=== PATIENT | female | born 1930 | race Hispanic/Latino ===

== ENCOUNTER 2016-06-27 19:10 | Emergency (ER) | payer MEDICARE, MEDICAID ==
[2016-06-27] MEDS ORDERED: Ketorolac Tromethamine 60 MG/2 ML VIAL ONE (19:42)
--- NOTE | 2016-06-27 20:11 | PICIS ---
[facility] EMERGENCY RECORD TRIAGE (TueJun 27, 2016 19:20 [facility]) TRIAGE NOTES: shooting pain in R hip down to toes. started this am when she got out of bed. (TueJun 27, 2016 19:20 [facility]) PATIENT: NAME: Jane Duffy, AGE: 85, GENDER: female, : [id number], TIME OF GREET: TueJun 27, 2016 19:11, PREFERRED LANGUAGE: French, ETHNICITY: or , ECODE BILLING MAP: [facility], SSN: [id number], Zip Code: [address], KG WEIGHT: 78.02 (est.), PHONE: , , , PERSON ID: [id number], PAYMENT: [employer], PCP: DO KRAUS KRISTEL. (TueJun 27, 2016 19:20 [facility]) COMPLAINT: pain in R Hip. (TueJun 27, 2016 19:20 [facility]) ADMISSION: URGENCY: 4 Non Urgent, ADMISSION SOURCE: Home, TRANSPORT: CAR, BED: TRIAGE. (TueJun 27, 2016 19:20 [facility]) SIRS SCORING: Heart Rate 55-109 (0), Temp range 96.8-101.1 (0), respiratory rate 12-24 (0), Mental Status altered: no (0). (19:23 [facility]) TRIAGE SCREENING: Patient denies suicidal ideation, Patient denies presence of domestic violence. (19:23 [facility]) TREATMENTS IN PROGRESS: Treatments given Prehospital: tylenol approx 1500. (19:23 [facility]) PROVIDERS: TRIAGE NURSE: Mariah Hanson RN. (TueJun 27, 2016 19:20 [facility]) VITAL SIGNS: BP 157/68, Pulse 74, Resp 18, (Non-Labored), Temp 98.6, (Oral), Pain 8, O2 Sat 96, on Room Air, Time 06/27/2016 19:16. (19:16 [facility]) PREVIOUS VISIT ALLERGIES: aspirin (bulk). (TueJun 27, 2016 19:20 [facility]) aspirin (bulk). (19:23 [facility]) KNOWN ALLERGIES aspirin (bulk) CURRENT MEDICATIONS dicyclomine: TABLET : Strength - 20 mg : ORAL Patient Dose: 20 mg Oral 4 times a day. (19:32 [facility]) Dexilant: CAPSULE, DELAYED RELEASE, BIPHASIC : Strength - 30 mg : ORAL Patient Dose: 1 tab(s) Oral once a day. (19:32 [facility]) amLODIPine: TABLET : Strength - 10 mg : ORAL Patient Dose: 1 tab(s) Oral once a day. (19:32 [facility]) traMADol: TABLET : Strength - 50 mg : ORAL Patient Dose: 50 mg Oral 2 times a day.as needed for pain. (19:33 [facility]) baclofen: TABLET : Strength - 10 mg : ORAL Patient Dose: 1 tab(s) Oral 3 times a day. (19:34 [facility]) &a-1R&a+25V*p+0X*m8447L*c202B*c15G*c2P*p-0X&a-25V&a+1R Name: Jane Duffy : 1930 F85 MedRec: [id number] AcctNum: [id number] Prepared: Eunice Jun 27, 2016 20:15 by Interface Page 1 of 6 pMD [facility] EMERGENCY RECORD VITAL SIGNS VITAL SIGNS: BP: 157/68, Pulse: 74, Resp: 18 (Non-Labored), Temp: 98.6 (Oral), Pain: 8, O2 sat: 96 on Room Air, Time: 06/27/2016 19:16. (19:16 [facility]) BP: 151/77, Pulse: 71, Resp: 16 (Non-Labored), Temp: 98.1 (Oral), Pain: 7, O2 sat: 100 on Room Air, Time: 06/27/2016 19:52. (19:52 [facility]) NURSING ASSESSMENT: EXTREMITY LOWER (19:23 [facility]) CONSTITUTIONAL: Complex assessment performed, Patient arrives ambulatory, Gait steady, History obtained from patient, Patient appears comfortable, Patient cooperative, Patient alert, Oriented to person, place and time, Skin warm, Skin dry, Skin normal in color, Mucous membranes pink, Mucous membranes moist, Patient is well-groomed, Patient complains of R hip pain, pt uses cane. PAIN: sharp pain, shooting pain, to the right hip, Pain radiates, radiated from hip to foot and toes, Onset of pain 06/27/2016 am, on a scale 0-10 patient rates pain as 8. RIGHT LOWER EXTREMITY: Right lower extremity assessment findings include capillary refill less than 2 seconds, Skin color normal, Skin temperature warm, Distal sensation intact, Muscle tone normal, muscle strength 5, non-pitting edema present, dorsalis pedis pulse is +3, Inspection findings include no pressure ulcers to the hip, Inspection findings include no pressure ulcer to the sacrum, Inspection findings include no pressure ulcer to the heel, Inspection findings include no pressure ulcer. SAFETY: Side rails up, Cart/Stretcher in lowest position, Family at bedside, Call light within reach, Hospital ID band on, Patient in view of the nursing station. NURSING PROCEDURE: DISCHARGE NOTE (19:58 [facility]) DISCHARGE: Patient discharged to home, ambulating with assistance, family driving, accompanied by other family member, Summary of Care printed/ provided, Patient requested and was provided an electronic copy of Discharge Instructions, Transition record given to patient, Discharge instructions given to patient, Discharge instructions given to daughter in law, Simple or moderate discharge teaching performed, by Mariah DOYLE, ibuprofen for pain, follow up with pcp if pain continues., Medication reconciliation form given, Above person(s) verbalized understanding of discharge instructions and follow-up care, Supervisor Core Drilling used, Patient treated and evaluated by physician. BELONGINGS: Belongings and valuables with patient at time of discharge include:, Belongings remain with patient, Valuables remain with patient. SAFETY: Side rails up, Cart/Stretcher in lowest position, Family at bedside, Call light within reach, Hospital ID band on, Patient in view of the nursing station. &a-1R&a+25V*p+0X*l0394F*c202B*c15G*c2P*p-0X&a-25V&a+1R Name: CliveJane Jose Armando : 1930 F85 MedRec: [id number] AcctNum: [id number] Prepared: Eunice Jun 27, 2016 20:15 by Interface Page 2 of 6 pMD [facility] EMERGENCY RECORD NURSING PROCEDURE: NURSE NOTES (19:35 [facility]) NURSES NOTES: Notes: ERMD at bedside. MEDICATION ADMINISTRATION SUMMARY Drug Name: Toradol intramuscular, Dose Ordered: 60 mg, Route: Intramuscular, Status: Given, Time: 19:48 06/27/2016, Detailed record available in Medication Service section. MEDICATION SERVICE (19:48 [facility]) Toradol intramuscular: Order: Toradol intramuscular (ketorolac tromethamine) - Dose: 60 mg : Intramuscular POTENTIAL ALLERGY REACTION: 'aspirin (bulk) [aspirin]' - Benefits outweigh risks, Reviewed with patient Ordered by: Dieudonne Jade MD Entered by: Dieudonne Jade MD [place] Jun 27, 2016 19:41 , Acknowledged by: Mariah Hanson RN [place] Jun 27, 2016 19:42 Documented as given by: Mariah Hanson RN [place] Jun 27, 2016 19:48 Patient, Medication, Dose, Route and Time verified prior to administration. IM medication, Amount given: 60 mg, Medication administered to right hip, Patient appears Awake and alert- acceptable, Correct patient, time, route, dose and medication confirmed prior to administration, Patient advised of actions and side-effects prior to administration, Allergies confirmed and medications reviewed prior to administration, Patient in position of comfort, Side rails up, Cart in lowest position, Family at bedside, Call light in reach. HPI BACK (20:06 [facility]) CHIEF COMPLAINT: Patient presents for evaluation of pain, to the right lower back. HISTORIAN: History provided by patient, 85F presents to the ED reporting that when she woke up this morning she had right low back pain radiating down her right leg. States it was present last night but less severe. Had similar problems on the left in the past. Denies trauma, denies abdominal pain. MECHANISM OF INJURY: No apparent mechanism of injury. LOCATION: Symptoms are localized to the back, right lumbar region. QUALITY: Pain is dull in nature, described as aching, described as throbbing. TIME COURSE: Gradual onset of symptoms, Symptoms are worsening. ASSOCIATED WITH: Associated with radiation of pain, to the right leg, Associated with sciatica, on the right. EXACERBATED BY: Patient's condition exacerbated by movement. RELIEVED BY: Patient's condition relieved by nothing because patient has not tried anything for relief. ROS (20:08 [facility]) &a-1R&a+25V*p+0X*q7863F*c202B*c15G*c2P*p-0X&a-25V&a+1R Name: Jane Duffy : 1930 F85 MedRec: [id number] AcctNum: [id number] Prepared: Eunice Jun 27, 2016 20:15 by Interface Page 3 of 6 pMD [facility] EMERGENCY RECORD CONSTITUTIONAL: Negative constitutional review of systems, Historian denies chills, denies fever. EYES: Negative eye review of systems, Historian denies eye pain, denies vision changes. ENT: Negative ears, nose, throat review of systems, Historian denies rhinorrhea, denies sore throat, denies voice changes. CARDIOVASCULAR: Negative cardiovascular review of systems, Historian denies chest pain, denies palpitations. RESPIRATORY: Negative respiratory review of systems, Historian denies cough, denies shortness of breath. GI: Negative gastrointestinal review of systems, Historian denies abdominal pain, denies constipation, denies diarrhea, denies nausea, denies vomiting. GENITOURINARY FEMALE: Negative genitourinary review of systems, Historian denies dysuria, denies frequency. MUSCULOSKELETAL: Historian reports back pain, right low back pain with radiation down right leg. SKIN: Negative skin review of systems, Historian denies rash, denies skin changes. NEUROLOGIC: Negative neurologic review of systems, Historian denies headache, denies mental status changes, denies paralysis, denies paresthesias, denies sensory changes. HEMO/LYMPHATIC: Normal hematologic/lymphatic system review, Historian denies abnormal blood clotting. ALLERGIC/IMMUNOLOGIC: Normal allergy/immunologic system review, Historian denies frequent infections. PAST MEDICAL HISTORY (19:23 [facility]) MEDICAL HISTORY: Flu vaccine up to date, Flu vaccine up to date Notes: RA, osteoprosis, myelopathy, insomnia,, Past medical history includes history of hypertension, Past medical history includes pulmonary disease, emphysema. asthma. FEMALE SURGICAL HISTORY: right ankle, bilat knee, bilat cataracts,, Surgical history of cholecystectomy, Surgical history of hysterectomy. BILATERAL MASTECTOMY. REVIEWED 02/25/15. PSYCHIATRIC HISTORY: Psychiatric history includes, depression. SOCIAL HISTORY: Patient denies alcohol use, Patient denies drug use, Patient has no smoking history. PHYSICAL EXAM (20:08 [facility]) CONSTITUTIONAL: Vital signs reviewed, Patient afebrile, Pulse normal, Blood pressure normal, Respiratory rate normal, Patient appears non toxic, Patient appears pain free, Patient alert and oriented to person, place and time. HEAD: Head exam normal, Head exam included findings of head atraumatic, normocephalic. EYES: Eye exam normal, Eye exam included findings of eyelids normal to inspection, Pupils equally round and reactive to light, Extraocular muscles intact, no nystagmus. &a-1R&a+25V*p+0X*d7754K*c202B*c15G*c2P*p-0X&a-25V&a+1R Name: Jane Duffy : 1930 F85 MedRec: [id number] AcctNum: [id number] Prepared: Eunice Jun 27, 2016 20:15 by Interface Page 4 of 6 D [facility] EMERGENCY RECORD ENT: ENT exam normal, Ear exam normal, external ear normal, tympanic membranes normal, no bleeding, Pharynx exam normal, Uvula exam normal, Tonsil exam normal, Mouth exam normal, mucous membranes moist, teeth normal. NECK: Neck exam normal, Neck exam included findings of normal range of motion, Trachea midline, no meningeal signs, no cervical adenopathy, no tenderness. RESPIRATORY CHEST: Respiratory and chest exam normal, Respiratory exam included findings of no respiratory distress, Breath sounds clear. CARDIOVASCULAR: Cardiovascular assessment normal, Cardiovascular exam included findings of heart rate regular rate and rhythm, Heart sounds normal. ABDOMEN FEMALE: Abdominal exam included findings of abdomen nontender, Bowel sounds normal, no distension, no mass, no pulsatile masses, no peritoneal signs, no rigidity, no guarding, no rebound, Rovsing's sign absent. BACK: right lumbar paraspinal tenderness, no midline tenderness. UPPER EXTREMITY: Upper extremity exam normal, Upper extremity exam included findings of inspection normal, Range of motion normal, Motor strength normal, Sensation intact, Radial pulse normal. LOWER EXTREMITY: Lower extremity exam normal, Lower extremity exam included findings of inspection normal, Range of motion normal, Motor strength normal, Sensation intact, Posterior tibial pulse normal, Pedal pulse normal. NEURO: Neuro exam normal, Neuro exam findings include patient oriented to person, place and time, Speech normal, Gait normal, Cranial nerves intact, no focal motor deficits, no focal sensory deficits. SKIN: Skin exam normal, Skin exam included findings of skin warm, dry, and normal in color, no rash. PSYCHIATRIC: Psychiatric exam normal, Normal affect. EVENTS TRANSFER: Triage to Emergency Triage. (Eunice Jun 27, 2016 19:20 [facility]) Emergency Triage to Emergency Room -01. (19:20 [facility]) Emergency Emergency Room -01 to -02. (19:20 [facility]) Removed from Emergency Emergency Room -02. (20:05 [facility]) DOCTOR NOTES (20:09 [facility]) TEXT: Patient presented to the ED with complaints suggestive of muscular back pain. I considered more concerning injuries such as epidural hematoma, caudal equina syndrome, fracture, or abscess, but felt that they were less likely based on the patient's history and physical exam findings. I believe that the patient is suitable for outpatient management and follow up with the primary doctor, and that the patient should return to the ED if symptoms worsen or change. &a-1R&a+25V*p+0X*v9719X*c202B*c15G*c2P*p-0X&a-25V&a+1R Name: Jane Duffy : 1930 F85 MedRec: [id number] AcctNum: [id number] Prepared: Eunice Jun 27, 2016 20:15 by Interface Page 5 of 6 pMD [facility] EMERGENCY RECORD PATIENT STATUS: Patient has improved since arrival to emergency department. PATIENT PLAN: The patient will be discharged, The patient will follow up with primary care physician. PROBLEM LIST No recorded problems [facility]IS (19:45 [facility] FINAL: PRIMARY: Sciatica - RIGHT. DISPOSITION PATIENT: Disposition Type: Discharge, Disposition: *Discharge Home. (19:45 [facility]) Patient left the department. (20:05 [facility]) IN[facility]CTION (19:46 [facility] DISCHARGE: BACK PAIN W/ SCIATICA. FOLLOWUP: DO KRAUS KRISTEL, Family Practice, [facility] [id number], [id number]. SPECIAL: Stretch, ibuprofen or naproxen for pain. Hot packs, and follow up with your primary doctor. PRESCRIPTION No recorded prescriptions IMAGING (20:00 [facility]) *SUPPLY CHARGE SHEET: Image captured from scanner. *DISCHARGE INSTRUCTIONS RECEIPT: Image captured from scanner. ADMIN (20:09 [facility]) DIGITAL SIGNATURE: MD Jade Jason. [place]: MATILDA=MD Jade Jason [facility]=YANIRA Hanson, Mariah &a-1R&a+25V*p+0X*b6736K*c202B*c15G*c2P*p-0X&a-25V&a+1R Name: Jane Duffy : 1930 F85 MedRec: [id number] AcctNum: [id number] Prepared: Eunice Jun 27, 2016 20:15 by Interface Page 6 of 6 pMD MTDD
--- NOTE | 2016-06-27 20:11 | ERRECORD ---
[facility] EMERGENCY RECORD HPI BACK (20:06 [facility]) CHIEF COMPLAINT: Patient presents for evaluation of pain, to the right lower back. HISTORIAN: History provided by patient, 85F presents to the ED reporting that when she woke up this morning she had right low back pain radiating down her right leg. States it was present last night but less severe. Had similar problems on the left in the past. Denies trauma, denies abdominal pain. MECHANISM OF INJURY: No apparent mechanism of injury. LOCATION: Symptoms are localized to the back, right lumbar region. QUALITY: Pain is dull in nature, described as aching, described as throbbing. TIME COURSE: Gradual onset of symptoms, Symptoms are worsening. ASSOCIATED WITH: Associated with radiation of pain, to the right leg, Associated with sciatica, on the right. EXACERBATED BY: Patient's condition exacerbated by movement. RELIEVED BY: Patient's condition relieved by nothing because patient has not tried anything for relief. ROS (20:08 [facility]) CONSTITUTIONAL: Negative constitutional review of systems, Historian denies chills, denies fever. EYES: Negative eye review of systems, Historian denies eye pain, denies vision changes. ENT: Negative ears, nose, throat review of systems, Historian denies rhinorrhea, denies sore throat, denies voice changes. CARDIOVASCULAR: Negative cardiovascular review of systems, Historian denies chest pain, denies palpitations. RESPIRATORY: Negative respiratory review of systems, Historian denies cough, denies shortness of breath. GI: Negative gastrointestinal review of systems, Historian denies abdominal pain, denies constipation, denies diarrhea, denies nausea, denies vomiting. GENITOURINARY FEMALE: Negative genitourinary review of systems, Historian denies dysuria, denies frequency. MUSCULOSKELETAL: Historian reports back pain, right low back pain with radiation down right leg. SKIN: Negative skin review of systems, Historian denies rash, denies skin changes. NEUROLOGIC: Negative neurologic review of systems, Historian denies headache, denies mental status changes, denies paralysis, denies paresthesias, denies sensory changes. HEMO/LYMPHATIC: Normal hematologic/lymphatic system review, Historian denies abnormal blood clotting. ALLERGIC/IMMUNOLOGIC: Normal allergy/immunologic system review, Historian denies frequent infections. PAST MEDICAL HISTORY (19:23 [facility]) &a-1R&a+25V*p+0X*w9797T*c202B*c15G*c2P*p-0X&a-25V&a+1R Name: Jane Duffy : 1930 F85 MedRec: [id number] AcctNum: [id number] Prepared: Eunice Jun 27, 2016 20:15 by Interface Page 1 of 4 pMD [facility] EMERGENCY RECORD MEDICAL HISTORY: Flu vaccine up to date, Flu vaccine up to date Notes: RA, osteoprosis, myelopathy, insomnia,, Past medical history includes history of hypertension, Past medical history includes pulmonary disease, emphysema. asthma. FEMALE SURGICAL HISTORY: right ankle, bilat knee, bilat cataracts,, Surgical history of cholecystectomy, Surgical history of hysterectomy. BILATERAL MASTECTOMY. REVIEWED 02/25/15. PSYCHIATRIC HISTORY: Psychiatric history includes, depression. SOCIAL HISTORY: Patient denies alcohol use, Patient denies drug use, Patient has no smoking history. KNOWN ALLERGIES aspirin (bulk) CURRENT MEDICATIONS dicyclomine: TABLET : Strength - 20 mg : ORAL Patient Dose: 20 mg Oral 4 times a day. (19:32 [facility]) Dexilant: CAPSULE, DELAYED RELEASE, BIPHASIC : Strength - 30 mg : ORAL Patient Dose: 1 tab(s) Oral once a day. (19:32 [facility]) amLODIPine: TABLET : Strength - 10 mg : ORAL Patient Dose: 1 tab(s) Oral once a day. (19:32 [facility]) traMADol: TABLET : Strength - 50 mg : ORAL Patient Dose: 50 mg Oral 2 times a day.as needed for pain. (19:33 [facility]) baclofen: TABLET : Strength - 10 mg : ORAL Patient Dose: 1 tab(s) Oral 3 times a day. (19:34 [facility]) VITAL SIGNS VITAL SIGNS: BP: 157/68, Pulse: 74, Resp: 18 (Non-Labored), Temp: 98.6 (Oral), Pain: 8, O2 sat: 96 on Room Air, Time: 06/27/2016 19:16. (19:16 [facility]) BP: 151/77, Pulse: 71, Resp: 16 (Non-Labored), Temp: 98.1 (Oral), Pain: 7, O2 sat: 100 on Room Air, Time: 06/27/2016 19:52. (19:52 [facility]) PHYSICAL EXAM (20:08 [facility]) CONSTITUTIONAL: Vital signs reviewed, Patient afebrile, Pulse normal, Blood pressure normal, Respiratory rate normal, Patient appears non toxic, Patient appears pain free, Patient alert and oriented to person, place and time. HEAD: Head exam normal, Head exam included findings of head atraumatic, normocephalic. EYES: Eye exam normal, Eye exam included findings of eyelids normal to inspection, Pupils equally round and reactive to light, Extraocular muscles intact, no nystagmus. &a-1R&a+25V*p+0X*b8686O*c202B*c15G*c2P*p-0X&a-25V&a+1R Name: Jane Duffy : 1930 F85 MedRec: [id number] AcctNum: [id number] Prepared: Eunice Jun 27, 2016 20:15 by Interface Page 2 of 4 D [facility] EMERGENCY RECORD ENT: ENT exam normal, Ear exam normal, external ear normal, tympanic membranes normal, no bleeding, Pharynx exam normal, Uvula exam normal, Tonsil exam normal, Mouth exam normal, mucous membranes moist, teeth normal. NECK: Neck exam normal, Neck exam included findings of normal range of motion, Trachea midline, no meningeal signs, no cervical adenopathy, no tenderness. RESPIRATORY CHEST: Respiratory and chest exam normal, Respiratory exam included findings of no respiratory distress, Breath sounds clear. CARDIOVASCULAR: Cardiovascular assessment normal, Cardiovascular exam included findings of heart rate regular rate and rhythm, Heart sounds normal. ABDOMEN FEMALE: Abdominal exam included findings of abdomen nontender, Bowel sounds normal, no distension, no mass, no pulsatile masses, no peritoneal signs, no rigidity, no guarding, no rebound, Rovsing's sign absent. BACK: right lumbar paraspinal tenderness, no midline tenderness. UPPER EXTREMITY: Upper extremity exam normal, Upper extremity exam included findings of inspection normal, Range of motion normal, Motor strength normal, Sensation intact, Radial pulse normal. LOWER EXTREMITY: Lower extremity exam normal, Lower extremity exam included findings of inspection normal, Range of motion normal, Motor strength normal, Sensation intact, Posterior tibial pulse normal, Pedal pulse normal. NEURO: Neuro exam normal, Neuro exam findings include patient oriented to person, place and time, Speech normal, Gait normal, Cranial nerves intact, no focal motor deficits, no focal sensory deficits. SKIN: Skin exam normal, Skin exam included findings of skin warm, dry, and normal in color, no rash. PSYCHIATRIC: Psychiatric exam normal, Normal affect. MEDICATION ADMINISTRATION SUMMARY Drug Name: Toradol intramuscular, Dose Ordered: 60 mg, Route: Intramuscular, Status: Given, Time: 19:48 06/27/2016, Detailed record available in Medication Service section. DOCTOR NOTES (20:09 [facility]) TEXT: Patient presented to the ED with complaints suggestive of muscular back pain. I considered more concerning injuries such as epidural hematoma, caudal equina syndrome, fracture, or abscess, but felt that they were less likely based on the patient's history and physical exam findings. I believe that the patient is suitable for outpatient management and follow up with the primary doctor, and that the patient should return to the ED if symptoms worsen or change. PATIENT STATUS: Patient has improved since arrival to emergency &a-1R&a+25V*p+0X*a9895B*c202B*c15G*c2P*p-0X&a-25V&a+1R Name: Jane Duffy Jose Armando : 1930 F85 MedRec: [id number] AcctNum: [id number] Prepared: Eunice Jun 27, 2016 20:15 by Interface Page 3 of 4 pMD [facility] EMERGENCY RECORD department. PATIENT PLAN: The patient will be discharged, The patient will follow up with primary care physician. PROBLEM LIST No recorded problems DIAGNOSIS (19:45 [facility]) FINAL: PRIMARY: Sciatica - RIGHT. PRESCRIPTION No recorded prescriptions DISPOSITION PATIENT: Disposition Type: Discharge, Disposition: *Discharge Home. (19:45 [facility]) Patient left the department. (20:05 [facility]) [place]: SOCO=MD Kalie, Dieudonne [place]=YANIRA Hanson, Mariah &a-1R&a+25V*p+0X*u3727R*c202B*c15G*c2P*p-0X&a-25V&a+1R Name: Jane Duffy DOB: 1930 F85 MedRec: [id number] AcctNum: [id number] Prepared: Eunice Jun 27, 2016 20:15 by Interface Page 4 of 4 pMD MTDD
== END 2016-06-27 19:57 | disposition home or self-care (01) ==
LOC: BURERS 19:10
DX: M54.41 Lumbago with sciatica, right side (principal); I10 Essential (primary) hypertension; J45.909 Unspecified asthma, uncomplicated; F32.9 Major depressive disorder, single episode, unspecified; Z79.899 Other long term (current) drug therapy
CPT/HCPCS: 96372; J1885

== ENCOUNTER 2016-06-29 08:45 | Emergency (ER) | payer MEDICARE, MEDICAID ==
[2016-06-29] MEDS ORDERED: Ketorolac Tromethamine 30 MG/ML VIAL ONE (09:18)
[2016-06-29 09:22] LABS: #Basophils 0.1 thou/uL (0.0-0.2); #Eosinphils 0.2 thou/uL (0.0-0.7); #Lymphocytes 0.9 thou/uL (1.20-3.40); #Monocytes 0.4 thou/uL (0.11-0.59); #Neutrophils 5.2 thou/uL (1.40-6.50); %Basophils 0.9 % (0.0-1.0); %Eosinophils 2.7 % (0.0-10.0); %Monocytes 5.4 % (0.0-10.0); Hematocrit 42.6 % (36.0-47.0); Mean Platelet Volume 5.6 fL (7.4-10.4); Red Blood Cell (RBC) Count 5.12 mill/uL (4.20-5.40); White Blood Cell (WBC) Count 6.6 thou/uL (4.8-10.8)
[2016-06-29] MEDS ORDERED: Fentanyl 100 MCG/2 ML VIAL ONE (09:39)
[2016-06-29 09:43] LABS: ALT (SGPT) 16 U/L (0-55); AST (SGOT) 19 U/L (5-34); Alkaline Phosphatase 135 U/L (40-150); Anion Gap 14 mmol/L (10-20); BUN (Urea Nitrogen) 18 mg/dL (9.8-20.1); Bilirubin, Total 0.8 mg/dL (0.2-1.2); Calc. Creatinine Clearance 0 mL/min (70-130); Calcium 9.2 mg/dL (7.8-10.44); Carbon Dioxide 25 mmol/L (23-31); Chloride 105 mmol/L (98-107); Estimated GFR-MDRD 50; Globulin 3.3 g/dL (2.4-3.5); Protein, Total 7.5 g/dL (5.8-8.1)
[2016-06-29] MEDS ORDERED: methylPREDNISolone Sod Succ/PF 125 MG/2 ML VIAL ONE (09:56)
[2016-06-29 11:05] LABS: Bilirubin Negative (Negative); Blood, Urine Trace (Negative); Glucose, Urine (Dipstick) Negative (Negative); Ketone, Urine Negative (Negative); Nitrite Negative (Negative); Protein, Urine (Dipstick) Negative (Neg-Trace); Urobilinogen 0.2 mg/dL (0.2-1.0)
[2016-06-29 11:09] LABS: Bacteria/HPF Rare-Few HPF (None Seen); RBC/HPF 0-3 HPF (0-3); Squamous Epithelial 0-3 HPF (0-3); WBC/HPF 0-3 HPF (0-3)
--- NOTE | 2016-06-29 12:21 | PICIS ---
[facility] EMERGENCY RECORD TRIAGE (08:50 KMOR) TRIAGE NOTES: Right leg pain dx with right sciatic nerve pain on Tuesday. (08:50 KMOR) PATIENT: NAME: Jane Duffy, AGE: 85, GENDER: female, : [id number], TIME OF GREET: TueJun 29, 2016 08:47, PREFERRED LANGUAGE: Maltese, ETHNICITY: or , ECODE BILLING MAP: [facility], SSN: [id number], Zip Code: [address], KG WEIGHT: 77.11, PHONE: , , , PERSON ID: [id number], PAYMENT: [employer], PCP: DO KRAUS KRISTEL. (08:50 KMOR) COMPLAINT: Right Leg Pain. (08:50 KMOR) ADMISSION: URGENCY: 4 Non Urgent, ADMISSION SOURCE: Home, AMBULANCE: [facility], TRANSPORT: AMBULANCE - [facility], BED: ER -04. (08:50 KMOR) ASSESSMENT: Assessment: A&XO4. RR AND UNLABORED., Symptoms began 2 days ago. (08:53 KMOR) PAIN: Patient complains of pain described as, aching, burning, on a scale 0-10 patient rates pain as 8, Location RIGHT LEG. (08:53 KMOR) SIRS SCORING: Heart Rate 55-109 (0), Temp range 96.8-101.1 (0), respiratory rate 12-24 (0), Mental Status altered: no (0), Infection or Suspected Infection: No. (08:53 KMOR) TRIAGE SCREENING: Patient denies suicidal ideation, Patient denies presence of domestic violence. (08:53 KMOR) LMP: LMP: Hysterectomy. (08:53 KMOR) PROVIDERS: TRIAGE NURSE: Ary Li RN. (08:50 KMOR) VITAL SIGNS: BP 133/65, Pulse 65, Resp 18, Temp 98.0, (Oral), Pain 8, O2 Sat 98, on Room Air, Time 06/29/2016 08:51. (08:51 KMOR) PREVIOUS VISIT ALLERGIES: aspirin (bulk). (08:50 KMOR) aspirin (bulk). (08:53 KMOR) KNOWN ALLERGIES aspirin (bulk) CURRENT MEDICATIONS (08:51 KMOR) dicyclomine: TABLET : Strength - 20 mg : ORAL Patient Dose: 20 mg Oral 4 times a day. Dexilant: CAPSULE, DELAYED RELEASE, BIPHASIC : Strength - 30 mg : ORAL Patient Dose: 1 tab(s) Oral once a day. amLODIPine: TABLET : Strength - 10 mg : ORAL Patient Dose: 1 tab(s) Oral once a day. traMADol: TABLET : Strength - 50 mg : ORAL Patient Dose: 50 mg Oral 2 times a day.as needed for pain. baclofen: TABLET : Strength - 10 mg : ORAL Patient Dose: 1 tab(s) Oral 3 times a day. &a-1R&a+25V*p+0X*t8305N*c202B*c15G*c2P*p-0X&a-25V&a+1R Name: Jane Duffy : 1930 F85 MedRec: [id number] AcctNum: [id number] Prepared: Laurence Jun 29, 2016 12:19 by Interface Page [address] [facility] EMERGENCY RECORD VITAL SIGNS VITAL SIGNS: BP: 133/65, Pulse: 65, Resp: 18, Temp: 98.0 (Oral), Pain: 8, O2 sat: 98 on Room Air, Time: 06/29/2016 08:51. (08:51 KMOR) BP: 124/70, Pulse: 62, Resp: 18, O2 sat: 94 on Room Air, Time: 06/29/2016 09:35. (09:35 KMOR) BP: 142/77, Pulse: 66, Resp: 18, Pain: 1-2, O2 sat: 97 on Room Air, Time: 06/29/2016 10:35. (10:35 AHOO) NURSING ASSESSMENT: EXTREMITY LOWER (09:06 KMOR) CONSTITUTIONAL: Patient arrives, via stretcher, via [facility], Unsteady gait, Lift to cart, History obtained from patient, Patient appears comfortable, Patient cooperative, Patient alert, Oriented to person, place and time, Skin warm, Skin dry, Skin normal in color, Mucous membranes pink, Mucous membranes moist, Patient is well-groomed, Patient complains of Right leg pain, Patient report right leg pain, pain starts in right hip and radiates down leg. Dx with sciatic on Tuesday. PAIN: aching pain, burning pain, to the right hip, to the right upper leg, on a scale 0-10 patient rates pain as 8. LEFT LOWER EXTREMITY: Left lower extremity assessment findings include capillary refill less than 2 seconds, Skin color normal, Skin temperature warm, Distal sensation intact, Muscle tone normal, muscle strength 5, no edema present, dorsalis pedis pulse is +3. RIGHT LOWER EXTREMITY: Right lower extremity assessment findings include capillary refill less than 2 seconds, Skin color normal, Skin temperature warm, Distal sensation intact, Muscle tone normal, muscle strength 5, no edema present, dorsalis pedis pulse is +3. NOTES: Patient tolerated procedure well. NURSING PROCEDURE: DISCHARGE NOTE (12:12 KMOR) DISCHARGE: Patient discharged to home, in a wheelchair, family driving, accompanied by other family member, Summary of Care printed/ provided, Transition record given to patient, Discharge instructions given to patient, Simple or moderate discharge teaching performed, by YANIRA Mcallister, Discharge and follow up reviewed with patient, Patient taken to vehicle in wheelchair. Patient verbalized understanding of instructions, Prescriptions given and instructions on side effects given, Name of prescription(s) given: diclofenac, tylenol 3, prednisone, Above person(s) verbalized understanding of discharge instructions and follow-up care, Patient instructed not to drive home. BELONGINGS: Belongings remain with patient, Valuables remain with patient. NURSING PROCEDURE: IV (09:15 KMOR) PATIENT IDENITIFIER: Patient actively involved in identification process, Patient's identity verified by patient stating name, Patient's identity verified by patient stating date. &a-1R&a+25V*p+0X*m1013R*c202B*c15G*c2P*p-0X&a-25V&a+1R Name: Jane Duffy : 1930 F85 MedRec: [id number] AcctNum: [id number] Prepared: Laurence Jun 29, 2016 12:19 by Interface Page [address] [facility] EMERGENCY RECORD IV SITE 1: IV therapy indicated for hydration, IV therapy indicated for medication administration, IV established, to the right antecubital, using a 20 gauge catheter, in one attempt, Saline lock established, Flushed with normal saline (mls): 10cc, Labs drawn at time of placement, labeled in the presence of the patient and sent to lab. FOLLOW-UP SITE 1: After procedure, 2x3 ensure dressing applied, After procedure, no drainage at IV site, After procedure, no swelling at IV site, After procedure, no redness at IV site. NOTES: Patient tolerated procedure well. NURSING PROCEDURE: NURSE NOTES NURSES NOTES: Notes: requested urine from patient, patient stated she could not go right now. (09:24 KMOR) Notes: Patient talking on phone resting without distress. RR even and unlabored. (09:46 KMOR) Notes: Patient assisted up to bathroom with cane. Tolerated well. (10:04 KMOR) Notes: Urine straight cath was preformed after patient attempted to urinate but unable to go, while she was in the bathroom she saw bright red blood while whipping. During catheter patient was checked for any vaginal bleeding. No bleeding noted, small hemorrhoid noted during exam. No active bleeding during this time. (10:52 KMOR) NURSING PROCEDURE: TRANSPORT TO TESTS PATIENT IDENTIFIER: Patient actively involved in identification process, Patient's identity verified by patient stating name, Patient's identity verified by patient stating date. (09:22 KMOR) TRANSPORT TO TESTS: Transport indicated to facilitate diagnosis, Patient transported to CT scan, via cart, Accompanied by x-ray delivery technician. (09:22 KMOR) FOLLOW-UP: After procedure, patient returned to emergency department. (09:38 KMOR) NURSING PROCEDURE: URINE COLLECTION (10:54 KMOR) PATIENT IDENTIFIER: Patient actively involved in identification process, Patient's identity verified by patient stating name, Patient's identity verified by patient stating date. URINE COLLECTION FEMALE: Urine collected by straight cath, using an 8fr catheter kit, in one attempt, output amount (mL) 15ml, urine yellow in color, and clear, Specimen collected, labeled in the presence of the patient and sent to lab. NOTES: Patient tolerated procedure well. ORDER DETAILS Order Name: CATH STRAIGHT ED, Status: Done, Time: 10:52 06/29/2016, User: KMOR, - Ordered for: DO Wilson Joseph, &a-1R&a+25V*p+0X*x0411Q*c202B*c15G*c2P*p-0X&a-25V&a+1R Name: Jane Duffy : 1930 F85 MedRec: [id number] AcctNum: [id number] Prepared: TueJun 29, 2016 12:19 by Interface Page [address] [facility] EMERGENCY RECORD - Entered by: DO Wilson Joseph - TueJun 29, 2016 10:41, - Quantity: 1, Order Name: CBC with Differential, Status: Active, Time: 09:09 06/29/2016, User: KASHMIR, - Ordered for: DO Wilson Joseph, - Entered by: DO Wilson Joseph - TueJun 29, 2016 09:09, - Quantity: 1, Order Name: Comprehensive Metabolic Panel, Status: Active, Time: 09:09 06/29/2016, User: KASHMIR, - Ordered for: DO Wilson Joseph, - Entered by: DO Wilson Joseph - TueJun 29, 2016 09:09, - Quantity: 1, Order Name: CT Lumbar Spine WO Con, Status: Active, Time: 09:10 06/29/2016, User: KASHMIR, - Ordered for: DO Wilson Joseph, - Entered by: DO Wilson Joseph - TueJun 29, 2016 09:10, - Quantity: 1, Order Name: SALINE LOCK, Status: Done, Time: 09:24 06/29/2016, User: GERMÁN, - Ordered for: DO Wilson Joseph, - Entered by: DO Wilson Joseph - TueJun 29, 2016 09:09, - Quantity: 1, Order Name: Urinalysis w/ Rflx Microscopic, Status: Active, Time: 09:09 06/29/2016, User: KASHMIR, - Ordered for: DO Wilson Joseph, - Entered by: DO Wilson Joseph - TueJun 29, 2016 09:09, - Quantity: 1. MEDICATION ADMINISTRATION SUMMARY Drug Name: Normal Saline, Dose Ordered: 500 mL, Route: IV Fluid Infusion, Status: Given, Time: 10:51 06/29/2016, Drug Name: Solu-MEDROL injection, Dose Ordered: 125 mg, Route: IV Push, Status: Given, Time: 09:59 06/29/2016, Drug Name: fentaNYL (PF) injection, Dose Ordered: 100 mcg, Route: IV Push, Status: Given, Time: 09:45 06/29/2016, Drug Name: *Toradol injection, Dose Ordered: 30 mg, Route: IV Push, Status: Given, Time: 09:22 06/29/2016, *Additional information available in notes, Detailed record available in Medication Service section. MEDICATION SERVICE fentaNYL (PF) injection: Order: fentaNYL (PF) injection (fentanyl citrate/preservative free) - Dose: 100 mcg : IV Push Schedule: Now Ordered by: Andre Wilson DO Entered by: Andre Wilson DO TueJun 29, 2016 09:11 , Acknowledged by: Ary Li RN TueJun 29, 2016 09:22 Documented as given by: Ary Li RN TueJun 29, 2016 09:45 &a-1R&a+25V*p+0X*s5993H*c202B*c15G*c2P*p-0X&a-25V&a+1R Name: Jane Duffy : 1930 F85 MedRec: [id number] AcctNum: [id number] Prepared: TueJun 29, 2016 12:19 by Interface Page [address] [facility] EMERGENCY RECORD Patient, Medication, Dose, Route and Time verified prior to administration. Amount given: 100mcg, IV SITE #1 IVP, subsequent different medication, Slowly, Awake and alert- acceptable, Catheter placement confirmed via flush prior to administration, IV site without signs or symptoms of infiltration during medication administration, No swelling during administration, No drainage during administration, IV flushed after administration, Correct patient, time, route, dose and medication confirmed prior to administration, Patient advised of actions and side-effects prior to administration, Allergies confirmed and medications reviewed prior to administration, Patient in position of comfort, Side rails up, Cart in lowest position, Family at bedside. : Follow Up : Response assessment performed, No signs or symptoms of allergic reaction noted, Decreased pain, _IV SITE #1:_, PT VERBALIZED PAIN LEVEL DECREASED TO 1-2/10. (11:16 OO) Normal Saline: Order: Normal Saline (0.9 % sodium chloride) - Dose: 500 mL : IV Fluid Infusion Schedule: Bolus Ordered by: Andre Wilson DO Entered by: Andre Wilson DO TueJun 29, 2016 10:32 , Acknowledged by: Ary Li RN TueJun 29, 2016 10:33 Documented as given by: Ary Li RN TueJun 29, 2016 10:51 Patient, Medication, Dose, Route and Time verified prior to administration. Amount given: 500ml, IV SITE #1 IV fluids established for hydration, IV SITE #1 into right antecubital, IV SITE #1 1st bag hung, amount 1 Liter hung, IV SITE #1 bolus of 500 ml established, IV SITE #1 on IV pump, Connections checked prior to administration, Line traced prior to administration, Catheter placement confirmed via flush prior to administration, IV site without signs or symptoms of infiltration during medication administration, No swelling during administration, No drainage during administration, IV flushed after administration, Correct patient, time, route, dose and medication confirmed prior to administration, Patient advised of actions and side-effects prior to administration, Allergies confirmed and medications reviewed prior to administration, Patient in position of comfort, Side rails up, Cart in lowest position, Family at bedside. : Follow Up : Response assessment performed, No signs or symptoms of allergic reaction noted, _IV SITE #1:_, IV fluid infusion discontinued, on TueJun 29, 2016 11:15, 25 minutes, ., Total amount infused: 500 ML, IV Line flushed after administration. (11:16 OO) Solu-MEDROL injection: Order: Solu-MEDROL injection (methylprednisolone sod succ) - Dose: 125 mg : IV Push Ordered by: Andre Wilson DO Entered by: Andre Wilson DO TueJun 29, 2016 09:53 , Acknowledged by: Ary Li RN TueJun 29, 2016 09:55 Documented as given by: Eileen Montenegro LVN TueJun 29, 2016 09:59 Patient, Medication, Dose, Route and Time verified prior to &a-1R&a+25V*p+0X*z1051T*c202B*c15G*c2P*p-0X&a-25V&a+1R Name: Jane Duffy : 1930 F85 MedRec: [id number] AcctNum: [id number] Prepared: TueJun 29, 2016 12:19 by Interface Page [address] [facility] EMERGENCY RECORD administration. Amount given: 125MG, IV SITE #1 IVP, initial medication, Slowly, Awake and alert- acceptable, Catheter placement confirmed via flush prior to administration, IV site without signs or symptoms of infiltration during medication administration, No swelling during administration, No drainage during administration, IV flushed after administration, Correct patient, time, route, dose and medication confirmed prior to administration, Patient advised of actions and side-effects prior to administration, Allergies confirmed and medications reviewed prior to administration, Patient in position of comfort, Side rails up, Cart in lowest position, Family at bedside. : Follow Up : Response assessment performed, No signs or symptoms of allergic reaction noted, Decreased pain, _IV SITE #1:_, PAIN LEVEL DECREASED TO 1-2/10. (11:15 AHOO) Toradol injection: Order: Toradol injection (ketorolac tromethamine) - Dose: 30 mg : IV Push POTENTIAL ALLERGY REACTION: 'aspirin (bulk) [aspirin]' - Not a true drug allergy Schedule: Now Notes: causes stomach pain Ordered by: Andre Wilson DO Entered by: Andre Wilson DO Jun 29, 2016 09:11 Documented as given by: Ary Li RN TueJun 29, 2016 09:22 Patient, Medication, Dose, Route and Time verified prior to administration. Amount given: 30mg, IV SITE #1 IVP, initial medication, Slowly, Awake and alert- acceptable, Catheter placement confirmed via flush prior to administration, IV site without signs or symptoms of infiltration during medication administration, No swelling during administration, No drainage during administration, IV flushed after administration, Correct patient, time, route, dose and medication confirmed prior to administration, Patient advised of actions and side-effects prior to administration, Allergies confirmed and medications reviewed prior to administration, Patient in position of comfort, Side rails up, Cart in lowest position, Family at bedside. : Follow Up : Response assessment performed, No signs or symptoms of allergic reaction noted, Decreased pain, _IV SITE #1:_, PAIN LEVEL DECREASED TO 1-2/10. (11:17 AHOO) HPI BACK (09:29 [facility]) CHIEF COMPLAINT: Patient presents for evaluation of pain, to the right lower back, Patient presents for evaluation of with pain into the right hip and down the back of her leg. HISTORIAN: History provided by patient. MECHANISM OF INJURY: No apparent mechanism of injury. LOCATION: Symptoms are localized to the back, to lumbar spine, Pain has not moved in location over time, radiation into hip. QUALITY: Pain is dull in nature, described as aching, described as burning. SEVERITY: Current severity of pain &a-1R&a+25V*p+0X*k7735G*c202B*c15G*c2P*p-0X&a-25V&a+1R Name: Jane Duffy : 1930 F85 MedRec: [id number] AcctNum: [id number] Prepared: TueJun 29, 2016 12:19 by Interface Page [address] [facility] EMERGENCY RECORD rated as 8/10. ASSOCIATED WITH: No associated abdominal pain, No associated bladder incontinence, No associated bowel incontinence, No associated dysuria, No associated fever, Associated with inability to ambulate, No associated motor weakness, No associated numbness, No associated problems with urination, Associated with radiation of pain, to the right leg, to the right buttock, Associated with sciatica, on the right. EXACERBATED BY: Patient's condition exacerbated by movement, Patient's condition exacerbated by walking. RELIEVED BY: Patient's condition relieved by remaining still. RISK FACTORS: Risk factors include prior back pain with surgery. ROS (09:31 JPIP) GI: Historian denies abdominal pain, denies constipation, denies diarrhea, denies nausea, denies vomiting. GENITOURINARY FEMALE: Historian denies dysuria, denies frequency, denies hematuria. MUSCULOSKELETAL: Historian reports back pain, denies injury. SKIN: Historian denies rash, denies skin changes, denies skin lesions. NEUROLOGIC: Historian denies mental status changes, denies paralysis, denies paresthesias. NOTES: All systems reviewed, negative except as described above. PAST MEDICAL HISTORY MEDICAL HISTORY: Flu vaccine up to date, Flu vaccine up to date Notes: RA, osteoprosis, myelopathy, insomnia,, Past medical history includes history of hypertension, Past medical history includes pulmonary disease, emphysema. asthma. (08:53 KMOR) FEMALE SURGICAL HISTORY: right ankle, bilat knee, bilat cataracts,, Surgical history of cholecystectomy, Surgical history of hysterectomy. BILATERAL MASTECTOMY. (08:53 KMOR) PSYCHIATRIC HISTORY: Psychiatric history includes, depression. (08:53 KMOR) SOCIAL HISTORY: Patient denies alcohol use, Patient denies drug use, Patient has no smoking history. (08:53 KMOR) NOTES: Nursing records reviewed, Old chart reviewed, Medication list reviewed. (09:42 JPIP) PHYSICAL EXAM (09:39 JPIP) CONSTITUTIONAL: Vital Signs Reviewed, Patient afebrile, Pulse normal, Blood pressure normal, Respiratory rate normal, Patient appears, in mild pain distress, Patient alert and oriented to person, place and time, Nursing notes reviewed. EYES: Eye exam included findings of eyelids normal to inspection, Conjunctiva normal, Sclera normal, no periorbital ecchymosis, no periorbital edema, no periorbital erythema. NECK: Neck exam included findings of normal range of motion. &a-1R&a+25V*p+0X*l9137U*c202B*c15G*c2P*p-0X&a-25V&a+1R Name: Jane Duffy : 1930 F85 MedRec: [id number] AcctNum: [id number] Prepared: TueJun 29, 2016 12:19 by Interface Page [address] [facility] EMERGENCY RECORD RESPIRATORY CHEST: Respiratory exam included findings of no respiratory distress, Breath sounds clear, No wheezing, No rales, No rhonchi, Breath sounds not absent, Breath sounds not diminished. CARDIOVASCULAR: Cardiovascular exam included findings of heart rate regular rate and rhythm, Heart sounds normal, no murmurs, no rub. ABDOMEN FEMALE: Abdominal exam included findings of abdomen nontender, Bowel sounds normal, Liver normal, Spleen normal, Abdominal aorta normal in size, no mass, no peritoneal signs, no rigidity, no guarding, no rebound, no abdominal bruits. BACK: Tenderness, TTP at the right SI and lower lumbar area, no costovertebral angle tenderness. LOWER EXTREMITY: Lower extremity exam included findings of inspection normal, no abrasions, no contusions, no deformity, no lacerations, Sensation intact, no edema, no calf tenderness, +SLR right. NEURO: Neuro exam findings include patient oriented to person, place and time, Ganesh coma scale 15, Deep tendon reflexes abnormal, to the right achilles, no focal motor deficits, Babinski's negative, no clonus, +SLR on the right. SKIN: Skin exam included findings of skin warm, dry, and normal in color, no rash. PSYCHIATRIC: Psychiatric exam included findings of patient oriented to person place and time, Normal affect. EVENTS TRANSFER: Triage to Emergency Emergency Room -04. (TueJun 29, 2016 08:50 KMOR) Removed from Emergency Emergency Room -04. (12:10 KMOR) O2SAT INTERPRETATION (09:28 JPIP) O2SAT: Continuous pulse oximetry, Oxygen saturation 98%, on room air, Oxygen saturation interpretation: Normal, No intervention required. DOCTOR NOTES TEXT: small blood noted in bathroom, appears to have come from her hemorrhoid. (11:06 JPIP) ambulated to bathroom with minimal difficulty. (12:07 JPIP) PROBLEM LIST No recorded problems DIAGNOSIS (11:18 JPIP) FINAL: PRIMARY: low back pain, ADDITIONAL: Degenerative disc disease, DJD, sciatica. DISPOSITION PATIENT: Disposition Type: Discharge, Disposition: *Discharge &a-1R&a+25V*p+0X*p6254B*c202B*c15G*c2P*p-0X&a-25V&a+1R Name: Jane Duffy : 1930 F85 MedRec: [id number] AcctNum: [id number] Prepared: TueJun 29, 2016 12:19 by Interface Page [address] [facility] EMERGENCY RECORD Home, Condition: Improved. (11:18 JPIP) Patient left the department. (12:10 KMOR) INSTRUCTION (10:02 JPIP) DISCHARGE: DEGENERATIVE DISK DISEASE, BACK PAIN W/ SCIATICA. FOLLOWUP: DO KRAUS KRISTEL, Family Practice, [address] [address], [id number]. SPECIAL: Take your medications as prescribed. Follow up with Primary Care Physician within 72 hours Do not take motrin/ibuprofen/alleve/naprosyn while taking the diclofenac Return to the Emergency Department for increased symptoms problems or concerns. PRESCRIPTION diclofenac oral: TABLET, DELAYED RELEASE (ENTERIC COATED) : 75 mg : ORAL : Quantity: 1 Unit: tab(s) Route: ORAL Schedule: 2 times a day (with meals) Dispense: 30 May substitute. Refills: No Refills POTENTIAL CONTRAINDICATED INTERACTION: Toradol injection (ketorolac tromethamine) Override Rationale: Patient no longer on medication POTENTIAL ALLERGY REACTION: 'aspirin (bulk) [aspirin]' Override Rationale: Not a true drug allergy. (10:01 JPIP) NOTES: as needed for pain No refills. (10:01 JPIP) Tylenol-Codeine #3: TABLET : 300 mg-30 mg : ORAL : Quantity: 1 Unit: tab(s) Route: ORAL Schedule: every 6 hours PRN Dispense: 30 May substitute. Refills: No Refills . (10:01 JPIP) NOTES: No refills. (10:01 JPIP) predniSONE oral: TABLET : 20 mg : ORAL : Quantity: 1 Unit: tab(s) Route: ORAL Schedule: once a day Dispense: 5 May substitute. Refills: No Refills . (10:02 JPIP) NOTES: Take with food No refills. (10:02 JPIP) IMAGING (12:14 KMOR) *DISCHARGE INSTRUCTIONS RECEIPT: Image captured from scanner. *SUPPLY CHARGE SHEET: Image captured from scanner. *RUN SHEET -EMS: Image captured from scanner. ADMIN (12:15 KMOR) DIGITAL SIGNATURE: YANIRA Li Krista. RESULTS LABORATORY: CBC with Differential Collection DT: TueJun 29, 2016 09:18, White Blood Cell (WBC) Count 6.6 thou/uL, Range (4.8-10.8), Red Blood Cell (RBC) Count 5.12 mill/uL, Range (4.20-5.40), &a-1R&a+25V*p+0X*r8986V*c202B*c15G*c2P*p-0X&a-25V&a+1R Name: Jane Duffy : 1930 F85 MedRec: [id number] AcctNum: [id number] Prepared: TueJun 29, 2016 12:19 by Interface Page [address] [facility] EMERGENCY RECORD Hemoglobin 13.8 g/dL, Range (12.0-16.0), Hematocrit 42.6 %, Range (36.0-47.0), Mean Corpuscular Volume 83.3 fl, Range (81.0-99.0), *Mean Corpuscular Hemoglobin 26.9 - L pg, Range (27.0-31.0), Mean Corpuscular HGB CONC 32.3 g/dL, Range (32.0-36.0), RBC Distribution Width 13.4 %, Range (11.5-14.5), Platelet Count 280 thou/uL, Range (130-400), *Mean Platelet Volume 5.6 - L fL, Range (7.4-10.4), *%Neutrophils 78.3 - H %, Range (42.0-75.0), *%Lymphocytes 12.7 - L %, Range (21.0-51.0), %Monocytes 5.4 %, Range (0.0-10.0), %Eosinophils 2.7 %, Range (0.0-10.0), %Basophils 0.9 %, Range (0.0-1.0), #Neutrophils 5.2 thou/uL, Range (1.40-6.50), *#Lymphocytes 0.9 - L thou/uL, Range (1.20-3.40), #Monocytes 0.4 thou/uL, Range (0.11-0.59), #Eosinphils 0.2 thou/uL, Range (0.0-0.7), #Basophils 0.1 thou/uL, Range (0.0-0.2). (09:27 [facility]) Comprehensive Metabolic Panel Collection DT: TueJun 29, 2016 09:18, Sodium 140 mmol/L, Range (136-145), Potassium 4.0 mmol/L, Range (3.5-5.1), Chloride 105 mmol/L, Range (98-107), Carbon Dioxide 25 mmol/L, Range (23-31), Anion Gap 14 mmol/L, Range (10-20), BUN (Urea Nitrogen) 18 mg/dL, Range (9.8-20.1), Creatinine 1.05 mg/dL, Range (0.6-1.1), Estimated GFR-MDRD 50 , Reference Range for Estimated GFR: Greater than 90, mL/min/1.73 m2 NOTE: The MDRD equation has not been validated for use, with the elderly (over 70 years of age), women, patients with, serious comorbid condition or persons with extremes of body size, muscle, mass, or nutritional status. , *Glucose 127 - H mg/dL, Range (83-110), Calcium 9.2 mg/dL, Range (7.8-10.44), Bilirubin, Total 0.8 mg/dL, Range (0.2-1.2), Protein, Total 7.5 g/dL, Range (5.8-8.1), NOTE: Plasma values are generally 0.3 to 0.5 g/dL higher than serum values, due to the presence of fibrinogen. , Albumin 4.2 g/dL, Range (3.4-4.8), Globulin 3.3 g/dL, Range (2.4-3.5), Alb/Glob Ratio 1.3 g/dL, Range (1.2-2.2), Alkaline Phosphatase 135 U/L, Range (40-150), AST (SGOT) 19 U/L, Range (5-34), ALT (SGPT) 16 U/L, Range (0-55). (09:50 JPIP) Urinalysis w/ Rflx Microscopic Collection DT: TueJun 29, 2016 11:05, Color Yellow , Range (Yellow), Clarity Clear , Range (Clear), Specific [place], Urine 1.010 , Range (1.005-1.030), &a-1R&a+25V*p+0X*[id number]*c202B*c15G*c2P*p-0X&a-25V&a+1R Name: Jane Duffy : 1930 F85 MedRec: [id number] AcctNum: [id number] Prepared: TueJun 29, 2016 12:19 by Interface Page [address] [facility] EMERGENCY RECORD pH, Urine 6.0 , Range (5.0-9.0), Leukocyte Negative , Range (Negative), Nitrite Negative , Range (Negative), Protein, Urine (Dipstick) Negative mg/dL, Range (Neg-Trace), Glucose, Urine (Dipstick) Negative mg/dL, Range (Negative), Ketone, Urine Negative mg/dL, Range (Negative), Urobilinogen 0.2 mg/dL, Range (0.2-1.0), Bilirubin Negative , Range (Negative), *Blood, Urine Trace - H , Range (Negative). (11:08 JPIP) Urine Microscopic Collection DT: TueJun 29, 2016 11:05, RBC/HPF 0-3 HPF, Range (0-3), WBC/HPF 0-3 HPF, Range (0-3), Squamous Epithelial 0-3 HPF, Range (0-3), Bacteria/HPF Rare-Few HPF, Range (None Seen). (11:15 JPIP) Urinalysis w/ Rflx Microscopic Collection DT: TueJun 29, 2016 11:05, Color Yellow , Range (Yellow), Clarity Clear , Range (Clear), Specific [place], Urine 1.010 , Range (1.005-1.030), pH, Urine 6.0 , Range (5.0-9.0), Leukocyte Negative , Range (Negative), Nitrite Negative , Range (Negative), Protein, Urine (Dipstick) Negative mg/dL, Range (Neg-Trace), Glucose, Urine (Dipstick) Negative mg/dL, Range (Negative), Ketone, Urine Negative mg/dL, Range (Negative), Urobilinogen 0.2 mg/dL, Range (0.2-1.0), Bilirubin Negative , Range (Negative), *Blood, Urine Trace - H , Range (Negative). (11:15 JPIP) [place]: AHOO=SAMUEL [place], August JPIP=DO Wilson Joseph KMOR=YANIRA Li, Ary &a-1R&a+25V*p+0X*l7004E*c202B*c15G*c2P*p-0X&a-25V&a+1R Name: CliveJane Jose Armando : 1930 F85 MedRec: [id number] AcctNum: [id number] Prepared: Tue Jun 29, 2016 12:19 by Interface Page 11 of 11 pMD MARISSA
--- NOTE | 2016-06-29 21:15 | CT ---
CT OF THE LUMBAR SPINE 06/29/[address] of the lumbar spine was performed for evaluation of right sciatic pain. Axial slices were acquired, then coronal and sagittal reconstructions were done. An anterior compression fracture of L2 is present. This is not new and could be see on a [address] but it is probably slightly more compressed than before. Fractures of the transverse processe s of L3 bilaterally are old and are seen on prior scans. Scoliosis is present, convexed left along w ith substantial degenerative changes throughout the spine. Findings by level follow: T12-L1: Prominent anterior osteophytes but no acute findings. L1-L2: Prominent osteophytes. No significant stenosis. Some slight ossification of the ligamentum fl avum. L2-L3: There is an anterior compression of L2 as described. There is a subcentimeter rounded lucency in the right side of the vertebral body of L2. It could be cystic change connected to the adjacent disc degeneration. There is no significant stenosis here. L3-L4: Disc space narrowing is present. There is severe facet arthritis and hypertrophy with moderat kinjal severe stenosis. There is some broad based bulging of the disc. There is mild to moderate right foraminal stenosis that may impinge upon the exiting L3 root. L4-L5: Grade I anterolisthesis of L4 on L5 is present. There has been a prior laminectomy at this le sangeeta. Spinal stenosis is present due to the severe facet overgrowth. The disc bulges towards the righ t laterally which could easily impinge upon the exiting L4 root. There is lateral recess stenosis a s well. The thecal sac seems partially calcified at this level and below. L5-S1: There is a diffuse bulge of the L5-S1 disc that could easily impinge upon exiting roots. Ther e is central canal stenosis here. There is some impingement on the thecal sac by an osteophyte that originates from the left facet joint at this level. IMPRESSION: Severe degenerative changes including areas of impingement as described above. Mild to moderate ante rior compression of L2 which is old but slightly more compressed than in 2015. POS: HOME
== END 2016-06-29 12:12 | disposition home or self-care (01) ==
LOC: BURERS 08:45
DX: M51.16 Intervertebral disc disorders with radiculopathy, lumbar region (principal); M19.90 Unspecified osteoarthritis, unspecified site; I10 Essential (primary) hypertension; M06.9 Rheumatoid arthritis, unspecified; J45.909 Unspecified asthma, uncomplicated; F32.9 Major depressive disorder, single episode, unspecified
CPT/HCPCS: 51701; 72131; 80053; 81003; 81015; 85025; 96374; 96375; A4353; J1885; J2930; J3010

== ENCOUNTER 2016-07-21 10:15 | Emergency (ER) | payer MEDICARE, MEDICAID ==
[2016-07-21] MEDS ORDERED: Ketorolac Tromethamine 30 MG/ML VIAL ONE (10:37)
[2016-07-21] MEDS ORDERED: methylPREDNISolone Acetate 40 mg/ml Vial ONE (10:37)
== END 2016-07-21 11:01 | disposition home or self-care (01) ==
LOC: BURERS 10:15
DX: M54.5 Low back pain (principal); I10 Essential (primary) hypertension; F32.9 Major depressive disorder, single episode, unspecified; J43.9 Emphysema, unspecified; Z79.899 Other long term (current) drug therapy
CPT/HCPCS: 96372; J1030; J1885

== ENCOUNTER 2016-08-25 12:00 | Outpatient (CLI) | payer MEDICARE, MEDICAID | END 2016-08-25 12:01 | disposition home or self-care (01) | LOC: BURLAB 12:00 | PROVIDERS: ATTEND Neurological Surgery | DX: Z01.812 Encounter for preprocedural laboratory examination (principal) | CPT/HCPCS: 36415; 82565 ==

== ENCOUNTER 2016-08-26 15:19 | Outpatient (CLI) | payer MEDICARE, MEDICAID ==
[~2016-08-26 15:19] MED LIST: Magnevist 469MG/ML 20 ML VIAL ONE
--- NOTE | 2016-08-26 19:58 | MRI ---
MRI LUMBAR SPINE WITH AND WITHOUT IV CONTRAST 08/26/16 HISTORY: Lumbar stenosis. COMPARISON: CT lumbar spine on 06/29/16. There is transitional vertebra at the lumbosacral junction with what appears to be sacralization of the L5 vertebral body. The lowest most ribs are labeled T12 with lumbar vertebral bodies numbered L1 through L5 with lumbosacral junction labeled L5-S1 with sacralization of the L5 vertebral body. There is mention of a compression fracture of the L2 vertebral body on CT scan examination. However, based on current numbering system and five nonribbearing lumbar type vertebral bodies, this represe nts a compression fracture of the L1 vertebral body and the degree of height loss is unchanged when compared to CT of the abdomen on 11/12/14. This appears to represent a burst type fracture with retro pulsion of the posterior superior end plate unchanged from the CT exam. No additional compression fr acture is seen. Multilevel degenerative changes are seen throughout the lumbar spine. There is left convexed scolios is of the lumbar spine. A 1.9 cm increased T1 and T2 weighted signal intensity lesion is seen in the left L4 vertebral body demonstrating characteristics consistent with a hemangioma. Postsurgical changes lumbar spine are seen at the L2-3 and L3-4 levels. There is slight anterolisthesis of L3 on L4 also seen on CT scan exam. This was also present on MRI on 04/27/06. The conus medullaris is normal in appearance and terminates at the level of the L1 vertebral body. T11-12 level: There is minimal broad based disc bulge and posterior osteophyte formation resulting i n only slight effacement of the ventral subarachnoid space. Neural foramina are patent. T12-L1 level: There is a broad based disc osteophyte complex with retropulsion of the posterior supe rior end plate of L1 vertebral body related to the burst type fracture. This results in only very mi ld narrowing of the central spinal canal. Neural foramina are patent. L1-2 level: There is a broad based disc osteophyte complex. There are facet hypertrophic changes and mild ligamentous thickening. The findings result in mild to moderate narrowing of the central spina l canal. There is mild to moderate bilateral neural foraminal narrowing greater on the left. L2-3 level: There is loss of the intervertebral disc height with end plate degenerative changes. The re is a broad based disc osteophyte complex and severe facet hypertrophic changes. There is moderate to severe narrowing of the central spinal canal. There is only minimal left, but there is moderate to severe right sided neural foraminal narrowing. L3-4 level: Laminectomy defect is noted posteriorly at this level. There is severe facet hypertrophi c changes. There is a broad based disc osteophyte complex in addition to the slight grade I anteroli sthesis of L3 on L4. The findings result in severe bilateral neural foraminal narrowing as well as s evere narrowing of the central spinal canal and narrowing of the lateral recesses. L4-5 level: There is a broad based disc osteophyte complex. There is severe facet hypertrophic gipson es. Laminectomy defect is seen posteriorly. There is severe narrowing of the central spinal canal, primarily due to the bony encroachment from posterior osteophyte formation and severe facet hypertro phic changes. There is moderate left and only minimal right sided neural foraminal narrowing. There is a ovoid shaped structure within the central spinal canal posterior to the L4 vertebral body which demonstrate fat density on all pulsed sequences and also demonstrates fat suppression. The re cent CT scan examination also demonstrated this structure posterior to the L4 vertebral body with dave rrounding calcification and this also demonstrated fat density on CT evaluation. The findings are mo st likely related to focal area of fat within the central spinal canal and given the surrounding yue cification, this may be attributable to fat necrosis in this region. This area measures 12 mm AP x 8 mm transverse in maximal axial dimensions. This does result in mass effect on the thecal sac which is displaced laterally and to the left resulting in severe narrowing. This is in combination with th e severe central spinal canal narrowing at the disc spaces at both the L3-4 and L4-5 levels. L5-S1 level: Based on sagittal imaging there is no disc bulge or disc herniation central spinal stacey l and neural foramina are patent. As noted on prior CT abdomen, there are left renal cysts with incompletely imaged lesion lateral asp ect mid portion right kidney. However, this does not appear to demonstrate enhancement on the postco ntrast images but is only partially visualized and probably represents a cyst as well. IMPRESSION: 1. Please refer to numbering system for this examination. The findings are assuming 12 nonribbe aring lumbar type vertebral bodies with sacralization of the L5 vertebral body. This numbering syste m is different than that for the CT lumbar spine. 2. Left convex scoliosis lumbar spine with multilevel degenerative changes. Postoperative gipson es are seen posterior to the L2-3 and L3-4 levels. 3. Focal area of fat which demonstrates calcified margins located posterior to the L4 vertebral body also noted on CT scan examination. This results in mass effect and severe narrowing of the th ecal sac at this level. Thecal sac is displaced to the left. 4. Postoperative and degenerative changes in the lumbar spine are greatest at the L2-3 and L3-4 as well as the L4-5 levels where there is moderate to severe narrowing of the central spinal canal at the L2-3 level and severe narrowing of the central spinal canal at the L3-4 and L4-5 levels. Ther e is severe bilateral neural foraminal narrowing at the L3-4 level, some of which is related to the grade I anterolisthesis at this level. There is moderate to severe right sided narrowing at the L2-3 level. 5. Remainder of the findings are as described above. 6. No abnormal enhancement is seen after IV contrast. POS: NADEGE
--- NOTE | 2016-08-26 22:43 | RAD ---
LUMBAR SPINE TWO VIEWS 08/26/16 Flexion and extension lateral views were provided. There is a mild anterolisthesis of L4 on L5 which does not change significantly between flexion and extension. There is a smaller anterolisthesis of L5 on S1 which increases by about 1 to 2 mm between the two views. The mild anterior compression fracture of L2 is noted as usual. IMPRESSION: Little or no change in the anterolisthesis at L4-L5 and minimal 1 to 2 mm change at L5-S1 between fl exion and extension. Note, the numbering system in this report assumes the compressed vertebra is L2. POS: HOME
== END 2016-08-26 15:20 | disposition home or self-care (01) ==
LOC: BURMRI 15:19
PROVIDERS: ATTEND Neurological Surgery
DX: M48.06 Spinal stenosis, lumbar region (principal); M43.16 Spondylolisthesis, lumbar region; M47.816 Spondylosis without myelopathy or radiculopathy, lumbar region
CPT/HCPCS: 72100; 72158; A9579

== ENCOUNTER 2016-11-16 11:05 | Outpatient (CLI) | payer MEDICARE, MEDICAID ==
[2016-11-16 12:07] LABS: Anion Gap 15 mmol/L (10-20); BUN (Urea Nitrogen) 14 mg/dL (9.8-20.1); Calc. Creatinine Clearance 0 mL/min (70-130); Calcium 9.1 mg/dL (7.8-10.44); Carbon Dioxide 25 mmol/L (23-31); Chloride 105 mmol/L (98-107); Estimated GFR-MDRD 62; Glucose 107 mg/dL (83-110); Magnesium 2.7 mg/dL (1.6-2.6); Potassium 4.4 mmol/L (3.5-5.1); Sodium 141 mmol/L (136-145)
== END 2016-11-16 11:06 | disposition home or self-care (01) ==
LOC: HPCALD 11:05
PROVIDERS: ATTEND Family Medicine
DX: R25.2 Cramp and spasm (principal)
CPT/HCPCS: 36415; 80048; 83735

== ENCOUNTER 2017-04-24 15:28 | Emergency (ER) | payer MEDICARE, MEDICAID ==
[2017-04-24] MEDS ORDERED: Fentanyl 100 MCG/2 ML VIAL ONE (15:39)
[2017-04-24] MEDS ORDERED: Ondansetron HCl/PF 4 MG/2 ML Vial ONE (16:07)
[2017-04-24 16:27] LABS: #Basophils 0.1 thou/uL (0.0-0.2); #Eosinphils 0.1 thou/uL (0.0-0.7); #Lymphocytes 1.2 thou/uL (1.20-3.40); #Monocytes 0.5 thou/uL (0.11-0.59); #Neutrophils 7.9 thou/uL (1.40-6.50); %Basophils 0.9 % (0.0-1.0); %Eosinophils 1.3 % (0.0-10.0); %Lymphocytes 12.1 % (21.0-51.0); %Monocytes 5.2 % (0.0-10.0); %Neutrophils 80.5 % (42.0-75.0); Hemoglobin 12.5 g/dL (12.0-16.0); Mean Corpuscular HGB CONC 32.5 g/dL (32.0-36.0); Mean Corpuscular Hemoglobin 28.5 pg (27.0-31.0); Mean Corpuscular Volume 87.7 fl (81.0-99.0); Mean Platelet Volume 6.4 fL (7.4-10.4); Platelet Count 248 thou/uL (130-400); RBC Distribution Width 13.4 % (11.5-14.5); White Blood Cell (WBC) Count 9.8 thou/uL (4.8-10.8)
[2017-04-24 16:34] LABS: PTT 34.6 SEC (22.9-36.1); Prothrombin Time 13.1 SEC (12.0-14.7)
[2017-04-24 16:43] LABS: ALT (SGPT) 15 U/L (8-55); AST (SGOT) 16 U/L (5-34); Albumin 3.8 g/dL (3.4-4.8); Alkaline Phosphatase 116 U/L (40-150); Anion Gap 15 mmol/L (10-20); BUN (Urea Nitrogen) 19 mg/dL (9.8-20.1); Bilirubin, Total 0.6 mg/dL (0.2-1.2); Calc. Creatinine Clearance 0 mL/min (70-130); Calcium 8.8 mg/dL (7.8-10.44); Carbon Dioxide 25 mmol/L (23-31); Chloride 105 mmol/L (98-107); Estimated GFR-MDRD 61; Globulin 2.9 g/dL (2.4-3.5); Glucose 117 mg/dL (83-110); Potassium 4.1 mmol/L (3.5-5.1); Protein, Total 6.7 g/dL (6.0-8.3); Sodium 141 mmol/L (136-145)
--- NOTE | 2017-04-24 18:29 | RAD ---
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 There is displacement and angulation of the fracture. The distal portion is displaced posteriorly slightly. The tibial component appears int act. There is no dislocation of the patella that I can see. IMPRESSION: Displaced angulated fracture of the distal femur just above the femoral component of the arthroplasty . POS: HOME
== END 2017-04-24 17:04 | disposition short-term general hospital (02) ==
LOC: BURERS 15:28
DX: S72.402A Unspecified fracture of lower end of left femur, initial encounter for closed fracture (principal); F32.9 Major depressive disorder, single episode, unspecified; J43.9 Emphysema, unspecified; I10 Essential (primary) hypertension; G95.9 Disease of spinal cord, unspecified; G47.00 Insomnia, unspecified; M06.9 Rheumatoid arthritis, unspecified; M81.0 Age-related osteoporosis without current pathological fracture; Z85.828 Personal history of other malignant neoplasm of skin; Z79.899 Other long term (current) drug therapy; W18.30XA Fall on same level, unspecified, initial encounter; Y93.01 Activity, walking, marching and hiking
CPT/HCPCS: 12001; 80053; 85025; 85610; 85730; 94760; 96361; 96374; 96375; J1170; J2405; J3010

== ENCOUNTER 2017-04-27 12:50 | Inpatient (IN) | payer MEDICARE, MEDICAID ==
[2017-04-27] MEDS ORDERED: Bisacodyl 10 MG SUPP PR PRN (13:59)
[2017-04-27 14:12] VITALS: BMI 31.7
[2017-04-27] MEDS: Mometasone/Formoterol 60 PUFF AER INH SCH (19:46)
[2017-04-27] MEDS: traZODone HCl 50 MG TAB PO SCH (20:08)
[2017-04-27] MEDS: Baclofen 10 MG TAB PO SCH (20:09)
[2017-04-27] MEDS: traMADol HCl 50 MG TAB PO PRN (20:09)
[2017-04-27] MEDS: Dicyclomine 20 MG TAB PO SCH (20:09)
[2017-04-28] MEDS: Mometasone/Formoterol 60 PUFF AER INH SCH ×2 (06:09→18:58)
[2017-04-28 06:25] LABS: Anion Gap 9 mmol/L (10-20); BUN (Urea Nitrogen) 11 mg/dL (9.8-20.1); Calc. Creatinine Clearance 67 mL/min (70-130); Carbon Dioxide 30 mmol/L (23-31); Chloride 103 mmol/L (98-107); Estimated GFR-MDRD 78; Glucose 112 mg/dL (83-110); Magnesium 2.2 mg/dL (1.6-2.6); Potassium 3.2 mmol/L (3.5-5.1); Sodium 139 mmol/L (136-145)
[2017-04-28] MEDS: Amlodipine 10 MG TAB PO SCH (08:24)
[2017-04-28] MEDS: Baclofen 10 MG TAB PO SCH ×3 (08:24→20:24)
[2017-04-28] MEDS: Dicyclomine 20 MG TAB PO SCH ×4 (08:25→20:24)
[2017-04-28] MEDS: traMADol HCl 50 MG TAB PO PRN (08:31)
[2017-04-28] MEDS ORDERED: Metamucil PACK PO SCH (09:00)
[2017-04-28] MEDS: Ventolin HFA Inhaler 60 PUFF INHALER INH PRN (15:30)
[2017-04-28] MEDS: traZODone HCl 50 MG TAB PO SCH (20:23)
[2017-04-28] MEDS: Polyethylene Glycol 3350 17 GM Packet PO SCH (20:24)
[2017-04-29] MEDS: traMADol HCl 50 MG TAB PO PRN ×3 (00:12→22:53)
[2017-04-29] MEDS: Mometasone/Formoterol 60 PUFF AER INH SCH ×2 (06:19→18:48)
[2017-04-29] MEDS: Baclofen 10 MG TAB PO SCH ×3 (08:48→20:23)
[2017-04-29] MEDS: Amlodipine 10 MG TAB PO SCH (08:48)
[2017-04-29] MEDS: Dicyclomine 20 MG TAB PO SCH ×4 (08:48→20:23)
[2017-04-29] MEDS: Ventolin HFA Inhaler 60 PUFF INHALER INH PRN (16:00)
[2017-04-29] MEDS: Acetaminophen 500 MG TAB PO PRN (20:23)
[2017-04-29] MEDS: traZODone HCl 50 MG TAB PO SCH (20:24)
[2017-04-29] MEDS: Polyethylene Glycol 3350 17 GM Packet PO SCH (20:24)
[2017-04-30] MEDS: Mometasone/Formoterol 60 PUFF AER INH SCH ×2 (06:53→18:05)
[2017-04-30] MEDS: traMADol HCl 50 MG TAB PO PRN ×2 (06:56→20:53)
[2017-04-30] MEDS: Amlodipine 10 MG TAB PO SCH (08:56)
[2017-04-30] MEDS: Dicyclomine 20 MG TAB PO SCH ×4 (08:57→20:52)
[2017-04-30] MEDS: Baclofen 10 MG TAB PO SCH ×3 (08:57→21:02)
[2017-04-30] MEDS: Acetaminophen 500 MG TAB PO PRN (08:57)
[2017-04-30] MEDS: Ventolin HFA Inhaler 60 PUFF INHALER INH PRN (14:00)
[2017-04-30] MEDS: Milk Of Magnesia 30 ML UDCUP PO PRN (14:06)
[2017-04-30] MEDS: traZODone HCl 50 MG TAB PO SCH (20:52)
[2017-04-30] MEDS: Polyethylene Glycol 3350 17 GM Packet PO SCH (20:52)
[2017-05-01] MEDS: Acetaminophen 500 MG TAB PO PRN (00:52)
[2017-05-01] MEDS: Mometasone/Formoterol 60 PUFF AER INH SCH ×2 (09:21→18:06)
[2017-05-01] MEDS: Amlodipine 10 MG TAB PO SCH (09:23)
[2017-05-01] MEDS: predniSONE 20 MG TAB PO SCH (09:23)
[2017-05-01] MEDS: traMADol HCl 50 MG TAB PO PRN ×2 (09:24→18:06)
[2017-05-01] MEDS: Baclofen 10 MG TAB PO SCH ×3 (09:24→20:09)
[2017-05-01] MEDS: Dicyclomine 20 MG TAB PO SCH ×4 (09:24→20:09)
[2017-05-01] MEDS: traZODone HCl 50 MG TAB PO SCH (20:09)
[2017-05-01] MEDS: Polyethylene Glycol 3350 17 GM Packet PO SCH (20:10)
[2017-05-02] MEDS: traMADol HCl 50 MG TAB PO PRN ×3 (03:57→17:49)
[2017-05-02] MEDS: Mometasone/Formoterol 60 PUFF AER INH SCH (07:26)
[2017-05-02] MEDS: Acetaminophen 500 MG TAB PO PRN ×2 (07:26→20:41)
[2017-05-02] MEDS: Dicyclomine 20 MG TAB PO SCH ×4 (08:24→20:41)
[2017-05-02] MEDS: Amlodipine 10 MG TAB PO SCH (08:24)
[2017-05-02] MEDS: predniSONE 20 MG TAB PO SCH (08:24)
[2017-05-02] MEDS: Baclofen 10 MG TAB PO SCH ×3 (08:24→20:41)
[2017-05-02] MEDS ORDERED: Phenergan/Codeine 10-6.25mg/5ml UDCUP PO PRN (13:15)
[2017-05-02] MEDS: Milk Of Magnesia 30 ML UDCUP PO PRN (17:50)
[2017-05-02] MEDS: Polyethylene Glycol 3350 17 GM Packet PO SCH (20:40)
[2017-05-02] MEDS: traZODone HCl 50 MG TAB PO SCH (20:41)
[2017-05-03] MEDS: Mometasone/Formoterol 60 PUFF AER INH SCH ×3 (07:14→17:43)
[2017-05-03] MEDS ORDERED: Nitroglycerin 2% Ointment 1 INCH/1 GM Packet ONE (09:03)
[2017-05-03] MEDS: Amlodipine 10 MG TAB PO SCH (09:05)
[2017-05-03] MEDS: predniSONE 20 MG TAB PO SCH (09:05)
[2017-05-03] MEDS: Dicyclomine 20 MG TAB PO SCH ×4 (09:05→20:30)
[2017-05-03] MEDS: Baclofen 10 MG TAB PO SCH ×3 (09:05→20:30)
[2017-05-03] MEDS ORDERED: Milk Of Magnesia 30 ML UDCUP PO PRN (09:30)
[2017-05-03] MEDS ORDERED: Bisacodyl 10 MG SUPP PR PRN (09:30)
[2017-05-03] MEDS: traMADol HCl 50 MG TAB PO PRN ×2 (10:08→18:36)
[2017-05-03] MEDS: Acetaminophen 500 MG TAB PO PRN ×2 (13:45→21:15)
[2017-05-03] MEDS: traZODone HCl 50 MG TAB PO SCH (20:31)
[2017-05-03] MEDS: Polyethylene Glycol 3350 17 GM Packet PO SCH (20:31)
[2017-05-04] MEDS: traMADol HCl 50 MG TAB PO PRN ×2 (05:41→15:41)
[2017-05-04] MEDS: Mometasone/Formoterol 60 PUFF AER INH SCH ×2 (06:31→18:44)
[2017-05-04] MEDS: predniSONE 20 MG TAB PO SCH (10:09)
[2017-05-04] MEDS: Acetaminophen 500 MG TAB PO PRN (10:09)
[2017-05-04] MEDS: Baclofen 10 MG TAB PO SCH ×3 (10:09→20:43)
[2017-05-04] MEDS: Amlodipine 10 MG TAB PO SCH (10:10)
[2017-05-04] MEDS: Dicyclomine 20 MG TAB PO SCH ×4 (10:10→20:43)
[2017-05-04] MEDS ORDERED: Potassium Chloride 20 MEQ TAB PO SCH (17:45)
[2017-05-04] MEDS: traZODone HCl 50 MG TAB PO SCH (20:43)
[2017-05-04] MEDS: Polyethylene Glycol 3350 17 GM Packet PO SCH (20:43)
[2017-05-05] MEDS: traMADol HCl 50 MG TAB PO PRN ×2 (03:14→12:18)
[2017-05-05] MEDS: Acetaminophen 500 MG TAB PO PRN (04:56)
[2017-05-05] MEDS: Mometasone/Formoterol 60 PUFF AER INH SCH ×2 (07:01→18:19)
[2017-05-05] MEDS: Dicyclomine 20 MG TAB PO SCH ×4 (10:00→20:52)
[2017-05-05] MEDS: predniSONE 20 MG TAB PO SCH (10:00)
[2017-05-05] MEDS: Amlodipine 10 MG TAB PO SCH (10:01)
[2017-05-05] MEDS: Baclofen 10 MG TAB PO SCH ×3 (10:01→20:52)
[2017-05-05] MEDS: traZODone HCl 50 MG TAB PO SCH (20:51)
[2017-05-05] MEDS: Polyethylene Glycol 3350 17 GM Packet PO SCH (20:52)
[2017-05-05] MEDS: Guaifenesin DM 100-10/5 ML UDCUP PO PRN (21:38)
[2017-05-06] MEDS: Guaifenesin DM 100-10/5 ML UDCUP PO PRN ×2 (04:36→16:40)
[2017-05-06] MEDS: traMADol HCl 50 MG TAB PO PRN ×2 (05:11→09:52)
[2017-05-06 05:37] LABS: Anion Gap 11 mmol/L (10-20); BUN (Urea Nitrogen) 21 mg/dL (9.8-20.1); Calc. Creatinine Clearance 64 mL/min (70-130); Calcium 8.4 mg/dL (7.8-10.44); Carbon Dioxide 28 mmol/L (23-31); Chloride 104 mmol/L (98-107); Estimated GFR-MDRD 73; Glucose 109 mg/dL (83-110); Sodium 139 mmol/L (136-145)
[2017-05-06] MEDS: Mometasone/Formoterol 60 PUFF AER INH SCH ×2 (06:42→18:51)
[2017-05-06] MEDS: Baclofen 10 MG TAB PO SCH ×3 (09:08→22:08)
[2017-05-06] MEDS: Amlodipine 10 MG TAB PO SCH (09:08)
[2017-05-06] MEDS: Dicyclomine 20 MG TAB PO SCH ×4 (09:09→22:08)
[2017-05-06] MEDS: predniSONE 20 MG TAB PO SCH (09:09)
[2017-05-06] MEDS: Acetaminophen 500 MG TAB PO PRN (14:12)
[2017-05-06] MEDS: traZODone HCl 50 MG TAB PO SCH (22:08)
[2017-05-06] MEDS: Polyethylene Glycol 3350 17 GM Packet PO SCH (22:08)
[2017-05-07] MEDS: traMADol HCl 50 MG TAB PO PRN ×3 (05:24→18:19)
[2017-05-07] MEDS: Mometasone/Formoterol 60 PUFF AER INH SCH ×2 (06:33→18:21)
[2017-05-07] MEDS: Acetaminophen 500 MG TAB PO PRN ×2 (07:34→21:21)
[2017-05-07] MEDS: Dicyclomine 20 MG TAB PO SCH ×4 (09:09→21:21)
[2017-05-07] MEDS: Amlodipine 10 MG TAB PO SCH (09:09)
[2017-05-07] MEDS: Baclofen 10 MG TAB PO SCH ×3 (09:10→21:21)
--- NOTE | 2017-05-07 10:42 | RAD ---
FOUR VIEWS OF THE LEFT FEMUR: INDICATION: Postop healing. COMPARISON: Fluoroscopic radiograph of the left femur dated 05/05/17. FINDINGS: The long lateral JOANNE plate involving the distal femur is unchanged in position from the comparison e xamination. Instrumentation projects in the expected position. The left total knee prosthesis appea rs unchanged in position. Fracture alignment is similar. No acute osseous abnormality is noted. IMPRESSION: Stable postoperative left leg. POS: NADEGE
[2017-05-07] MEDS: Guaifenesin DM 100-10/5 ML UDCUP PO PRN (21:21)
[2017-05-07] MEDS: traZODone HCl 50 MG TAB PO SCH (21:21)
[2017-05-07] MEDS: Polyethylene Glycol 3350 17 GM Packet PO SCH (21:21)
[2017-05-08] MEDS: Ventolin HFA Inhaler 60 PUFF INHALER INH PRN (01:48)
[2017-05-08] MEDS: Guaifenesin DM 100-10/5 ML UDCUP PO PRN ×2 (03:10→13:52)
[2017-05-08] MEDS: traMADol HCl 50 MG TAB PO PRN ×3 (05:17→19:15)
[2017-05-08] MEDS: Mometasone/Formoterol 60 PUFF AER INH SCH ×2 (06:18→17:17)
[2017-05-08] MEDS: Acetaminophen 500 MG TAB PO PRN (06:24)
[2017-05-08] MEDS: Amlodipine 10 MG TAB PO SCH (08:49)
[2017-05-08] MEDS: Dicyclomine 20 MG TAB PO SCH ×4 (08:50→20:41)
[2017-05-08] MEDS: Baclofen 10 MG TAB PO SCH ×3 (08:50→20:42)
[2017-05-08] MEDS: traZODone HCl 50 MG TAB PO SCH (20:42)
[2017-05-08] MEDS: Polyethylene Glycol 3350 17 GM Packet PO SCH (20:43)
[2017-05-09] MEDS: traMADol HCl 50 MG TAB PO PRN ×3 (04:31→17:00)
[2017-05-09] MEDS: Mometasone/Formoterol 60 PUFF AER INH SCH ×2 (06:31→18:26)
[2017-05-09] MEDS: Acetaminophen 500 MG TAB PO PRN ×2 (08:26→16:33)
[2017-05-09] MEDS: Amlodipine 10 MG TAB PO SCH (08:26)
[2017-05-09] MEDS: Baclofen 10 MG TAB PO SCH ×3 (08:27→20:59)
[2017-05-09] MEDS: Dicyclomine 20 MG TAB PO SCH ×4 (08:27→20:59)
[2017-05-09] MEDS: Polyethylene Glycol 3350 17 GM Packet PO SCH (20:59)
[2017-05-09] MEDS: traZODone HCl 50 MG TAB PO SCH (20:59)
[2017-05-09] MEDS: Guaifenesin DM 100-10/5 ML UDCUP PO PRN (21:57)
[2017-05-10] MEDS: traMADol HCl 50 MG TAB PO PRN ×3 (03:02→21:17)
[2017-05-10] MEDS: Guaifenesin DM 100-10/5 ML UDCUP PO PRN ×2 (05:24→21:33)
[2017-05-10] MEDS: Acetaminophen 500 MG TAB PO PRN (05:27)
[2017-05-10] MEDS: Mometasone/Formoterol 60 PUFF AER INH SCH ×2 (06:39→21:33)
[2017-05-10] MEDS: Amlodipine 10 MG TAB PO SCH (08:41)
[2017-05-10] MEDS: Dicyclomine 20 MG TAB PO SCH ×4 (08:42→21:17)
[2017-05-10] MEDS: Baclofen 10 MG TAB PO SCH ×3 (08:42→21:17)
[2017-05-10] MEDS: traZODone HCl 50 MG TAB PO SCH (21:17)
[2017-05-10] MEDS: Polyethylene Glycol 3350 17 GM Packet PO SCH (21:17)
[2017-05-11] MEDS: Guaifenesin DM 100-10/5 ML UDCUP PO PRN (03:42)
[2017-05-11] MEDS: Mometasone/Formoterol 60 PUFF AER INH SCH ×2 (06:33→18:44)
[2017-05-11] MEDS: traMADol HCl 50 MG TAB PO PRN ×2 (08:18→17:16)
[2017-05-11] MEDS: Amlodipine 10 MG TAB PO SCH (09:08)
[2017-05-11] MEDS: Dicyclomine 20 MG TAB PO SCH ×4 (09:14→20:42)
[2017-05-11] MEDS: Baclofen 10 MG TAB PO SCH ×3 (09:14→20:43)
[2017-05-11] MEDS: Acetaminophen 500 MG TAB PO PRN (10:35)
[2017-05-11] MEDS: Polyethylene Glycol 3350 17 GM Packet PO SCH (20:41)
[2017-05-11] MEDS: traZODone HCl 50 MG TAB PO SCH (20:41)
[2017-05-12] MEDS: traMADol HCl 50 MG TAB PO PRN ×3 (04:58→22:03)
[2017-05-12] MEDS: Mometasone/Formoterol 60 PUFF AER INH SCH ×2 (06:31→18:42)
[2017-05-12] MEDS: Baclofen 10 MG TAB PO SCH ×3 (09:17→22:02)
[2017-05-12] MEDS: Amlodipine 10 MG TAB PO SCH (09:17)
[2017-05-12] MEDS: Dicyclomine 20 MG TAB PO SCH ×4 (09:18→22:01)
[2017-05-12] MEDS: traZODone HCl 50 MG TAB PO SCH (22:00)
[2017-05-12] MEDS: Polyethylene Glycol 3350 17 GM Packet PO SCH (22:03)
[2017-05-13] MEDS: traMADol HCl 50 MG TAB PO PRN ×4 (04:22→22:20)
[2017-05-13] MEDS: Guaifenesin DM 100-10/5 ML UDCUP PO PRN ×4 (04:25→22:20)
[2017-05-13] MEDS: Mometasone/Formoterol 60 PUFF AER INH SCH ×2 (06:18→18:52)
[2017-05-13] MEDS: Baclofen 10 MG TAB PO SCH ×3 (08:47→21:16)
[2017-05-13] MEDS: Dicyclomine 20 MG TAB PO SCH ×4 (08:47→21:16)
[2017-05-13] MEDS: Amlodipine 10 MG TAB PO SCH (08:48)
[2017-05-13] MEDS: Ventolin HFA Inhaler 60 PUFF INHALER INH PRN (15:33)
[2017-05-13] MEDS: traZODone HCl 50 MG TAB PO SCH (21:16)
[2017-05-13] MEDS: Polyethylene Glycol 3350 17 GM Packet PO SCH (21:16)
[2017-05-14] MEDS: Mometasone/Formoterol 60 PUFF AER INH SCH ×2 (06:13→18:56)
[2017-05-14] MEDS: traMADol HCl 50 MG TAB PO PRN ×2 (06:22→21:22)
[2017-05-14] MEDS: Baclofen 10 MG TAB PO SCH ×3 (09:16→20:32)
[2017-05-14] MEDS: Dicyclomine 20 MG TAB PO SCH ×4 (09:17→20:32)
[2017-05-14] MEDS: Amlodipine 10 MG TAB PO SCH (09:17)
[2017-05-14] MEDS: Polyethylene Glycol 3350 17 GM Packet PO SCH (20:32)
[2017-05-14] MEDS: traZODone HCl 50 MG TAB PO SCH (20:32)
[2017-05-14] MEDS: Guaifenesin DM 100-10/5 ML UDCUP PO PRN (21:21)
[2017-05-15] MEDS: Mometasone/Formoterol 60 PUFF AER INH SCH ×2 (06:34→18:07)
[2017-05-15] MEDS: Baclofen 10 MG TAB PO SCH ×3 (07:45→20:44)
[2017-05-15] MEDS: Amlodipine 10 MG TAB PO SCH (07:45)
[2017-05-15] MEDS: Dicyclomine 20 MG TAB PO SCH ×4 (07:46→20:44)
[2017-05-15] MEDS: Acetaminophen 500 MG TAB PO PRN (08:46)
[2017-05-15] MEDS: traMADol HCl 50 MG TAB PO PRN ×2 (12:22→19:38)
[2017-05-15] MEDS: Guaifenesin DM 100-10/5 ML UDCUP PO PRN (19:38)
[2017-05-15] MEDS: Polyethylene Glycol 3350 17 GM Packet PO SCH (20:43)
[2017-05-15] MEDS: traZODone HCl 50 MG TAB PO SCH (20:43)
[2017-05-16] MEDS: Mometasone/Formoterol 60 PUFF AER INH SCH ×2 (06:26→19:26)
[2017-05-16] MEDS: Amlodipine 10 MG TAB PO SCH (08:38)
[2017-05-16] MEDS: Dicyclomine 20 MG TAB PO SCH ×4 (08:38→21:16)
[2017-05-16] MEDS: Acetaminophen 500 MG TAB PO PRN ×2 (08:39→17:14)
[2017-05-16] MEDS: traMADol HCl 50 MG TAB PO PRN (08:39)
[2017-05-16] MEDS: Baclofen 10 MG TAB PO SCH ×3 (08:39→21:16)
[2017-05-16] MEDS ORDERED: traMADol HCl 50 MG TAB PO PRN (14:21)
[2017-05-16] MEDS: traZODone HCl 50 MG TAB PO SCH (21:16)
[2017-05-16] MEDS: Polyethylene Glycol 3350 17 GM Packet PO SCH (21:18)
[2017-05-17] MEDS: Mometasone/Formoterol 60 PUFF AER INH SCH ×2 (09:41→18:33)
[2017-05-17] MEDS: Dicyclomine 20 MG TAB PO SCH ×4 (09:44→20:12)
[2017-05-17] MEDS: Baclofen 10 MG TAB PO SCH ×3 (09:44→20:12)
[2017-05-17] MEDS: Amlodipine 10 MG TAB PO SCH (09:44)
[2017-05-17] MEDS: Acetaminophen 500 MG TAB PO PRN (14:38)
[2017-05-17] MEDS: Polyethylene Glycol 3350 17 GM Packet PO SCH (20:12)
[2017-05-17] MEDS: Guaifenesin DM 100-10/5 ML UDCUP PO PRN (20:12)
[2017-05-17] MEDS: traZODone HCl 50 MG TAB PO SCH (20:12)
[2017-05-17] MEDS: traMADol HCl 50 MG TAB PO PRN (20:12)
[2017-05-18] MEDS: traMADol HCl 50 MG TAB PO PRN ×2 (01:52→08:36)
[2017-05-18] MEDS: Mometasone/Formoterol 60 PUFF AER INH SCH ×2 (06:15→17:10)
[2017-05-18] MEDS: Amlodipine 10 MG TAB PO SCH (08:37)
[2017-05-18] MEDS: Baclofen 10 MG TAB PO SCH ×3 (08:38→21:09)
[2017-05-18] MEDS: Dicyclomine 20 MG TAB PO SCH ×4 (08:38→21:10)
[2017-05-18] MEDS: Acetaminophen 500 MG TAB PO PRN (17:10)
[2017-05-18] MEDS: traZODone HCl 50 MG TAB PO SCH (21:09)
[2017-05-18] MEDS: Polyethylene Glycol 3350 17 GM Packet PO SCH (21:10)
[2017-05-19 05:58] VITALS: BP 155/67
[2017-05-19] MEDS: Mometasone/Formoterol 60 PUFF AER INH SCH (06:36)
[2017-05-19 10:28] VITALS: TEMP 98
[2017-05-19] MEDS: Dicyclomine 20 MG TAB PO SCH ×2 (10:32→12:51)
[2017-05-19] MEDS: Amlodipine 10 MG TAB PO SCH (10:33)
[2017-05-19] MEDS: Baclofen 10 MG TAB PO SCH ×2 (10:33→14:51)
[2017-05-19] MEDS: Acetaminophen 500 MG TAB PO PRN (12:51)
== END 2017-05-19 15:20 | disposition home health service (06) | DRG 561 ==
LOC: BURMED 12:50
PROVIDERS: ADMIT Family Medicine; ATTEND Family Medicine
DX: S72.452D Displaced supracondylar fracture without intracondylar extension of lower end of left femur, subsequent encounter for closed fracture with routine healing (principal); M06.9 Rheumatoid arthritis, unspecified; E83.42 Hypomagnesemia; E87.6 Hypokalemia; G47.00 Insomnia, unspecified; I10 Essential (primary) hypertension; M81.0 Age-related osteoporosis without current pathological fracture; W01.0XXD Fall on same level from slipping, tripping and stumbling without subsequent striking against object, subsequent encounter; K21.9 Gastro-esophageal reflux disease without esophagitis; J40 Bronchitis, not specified as acute or chronic
CPT/HCPCS: 36415; 80048; 83735; 94664; G8978-GP-CM; G8979-GP-CJ; J7506

== ENCOUNTER 2018-09-15 15:11 | Emergency (ER) | payer MEDICARE, MEDICAID ==
[2018-09-15 15:36] LABS: #Eosinphils 0.1 thou/uL (0.0-0.7); #Lymphocytes 1.2 thou/uL (1.20-3.40); #Monocytes 0.4 thou/uL (0.11-0.59); #Neutrophils 4.3 thou/uL (1.40-6.50); %Basophils 0.8 % (0.0-1.0); %Eosinophils 2.2 % (0.0-10.0); %Monocytes 6.9 % (0.0-10.0); %Neutrophils 70.1 % (42.0-75.0); Mean Corpuscular HGB CONC 31.5 g/dL (32.0-36.0); Mean Corpuscular Hemoglobin 26.4 pg (27.0-31.0); Mean Corpuscular Volume 83.7 fL (78.0-98.0); Mean Platelet Volume 5.7 fL (7.4-10.4); Platelet Count 267 thou/uL (130-400); RBC Distribution Width 14.2 % (11.5-14.5); Red Blood Cell (RBC) Count 4.57 mill/uL (4.20-5.40); White Blood Cell (WBC) Count 6.1 thou/uL (4.8-10.8)
[2018-09-15] MEDS ORDERED: Aspirin Chewable 81 MG TAB ONE (15:36)
[2018-09-15 15:53] LABS: ALT (SGPT) 12 U/L (8-55); AST (SGOT) 15 U/L (5-34); Albumin 4.2 g/dL (3.4-4.8); Alkaline Phosphatase 107 U/L (40-150); Anion Gap 12 mmol/L (10-20); BUN (Urea Nitrogen) 12 mg/dL (9.8-20.1); Bilirubin, Total 0.6 mg/dL (0.2-1.2); Calc. Creatinine Clearance 0 mL/min (70-130); Calcium 9.4 mg/dL (7.8-10.44); Carbon Dioxide 29 mmol/L (23-31); Chloride 101 mmol/L (98-107); Estimated GFR-MDRD 57; Globulin 3.1 g/dL (2.4-3.5); Glucose 127 mg/dL (83-110); Potassium 3.7 mmol/L (3.5-5.1); Protein, Total 7.3 g/dL (6.0-8.3); Sodium 138 mmol/L (136-145)
--- NOTE | 2018-09-15 17:28 | RAD ---
PORTABLE CHEST 09/15/18 An AP portable film at 1534 is compared with a 02/25/15 study. The heart is normal in size and the shirley gs are clear. No infiltrate or effusion was seen. There is no vascular congestion or edema. IMPRESSION: Stable exam showing no acute findings. POS: HOME
== END 2018-09-15 16:20 | disposition short-term general hospital (02) ==
LOC: BURERS 15:11
DX: R07.2 Precordial pain (principal); M81.0 Age-related osteoporosis without current pathological fracture; G47.00 Insomnia, unspecified; I10 Essential (primary) hypertension; J45.909 Unspecified asthma, uncomplicated; F32.9 Major depressive disorder, single episode, unspecified
CPT/HCPCS: 71045; 80053; 84484; 85025; 93005

== ENCOUNTER 2019-06-01 11:13 | Emergency (ER) | payer MEDICARE, MEDICAID ==
--- NOTE | 2019-06-01 17:40 | RAD ---
RIGHT ANKLE THREE VIEWS: 06/01/19 No prior film was available for comparison. There appears to be an old well healed fracture of the di stal tibia. As a part of this prior fracture, there has been bony fusion between the distal tibia and fibula in the interosseous membrane. No current fracture was seen. No bony destructive lesion was ev ident. A tiny calcaneal spur was seen. IMPRESSION: Old posttraumatic changes of the distal tibia and fibula. POS: HOME
== END 2019-06-01 12:33 | disposition home or self-care (01) ==
LOC: BURERS 11:13
DX: M19.071 Primary osteoarthritis, right ankle and foot (principal); M06.9 Rheumatoid arthritis, unspecified; G47.00 Insomnia, unspecified; I10 Essential (primary) hypertension; J43.9 Emphysema, unspecified